=== PATIENT | female | born 1985 | race Hispanic/Latino ===

== ENCOUNTER 2024-04-24 16:25 | Emergency (ER) | payer OTHER ==
[~2024-04-24] VITALS: Ht 149.9 cm; Wt 76.2 kg
--- NOTE | 2024-04-24 17:31 | ERN ---
ED Note History of Present Illness Stated Complaint: VAGINAL PAIN, SWELLING, BURNING Chief Complaint: Vaginal plain Time Seen by MD: 16:58 Time Seen by Midlevel: 16:45 Dictation: Ms. Soriano is a 39-year-old female with history of obesity who presented to the emergency department this afternoon for evaluation vaginal pain. She reports 4- 5 days white/yeasty discharge with itching. She states now labia are very painful with burning sensation. She has pain with urination. She denies having any fever, chills, nausea, vomiting, diarrhea, hematuria, flank pain, abdominal pain headache, or dizziness. She states she has been monogamous heterosexual relationship. 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: None Home Meds Active Scripts Clotrimazole (Lotrimin 1% Cream) 1 % Crm, 1 APPL TP BID for 7 Days, #15 GM 0 Refills apply to affected area(s) Prov:ALHAJIJAISON Susi SANCHEZ 04/24/24 Ibuprofen (Ibuprofen) 600 Mg Tablet, 600 MG PO Q6H PRN for PAIN, #15 TAB 0 Refills Prov:JAISON MANE Susi SANCHEZ 04/24/24 Fluconazole (Diflucan) 100 Mg Tablet, 150 MG PO ONCE, #1 TAB 0 Refills Prov:JIASON MANE GRAVURE [employer]ESS SET UP OPERATOR 04/24/24 Cephalexin (Cephalexin) 500 Mg Tablet, 500 MG PO BID for 10 Days, #20 TAB 0 Refills Prov:JAISON MANE GRAVURE [employer] SET UP OPERATOR 04/24/24 Past Medical History Past Medical History: No Pertinent History PSYCH History: no pertinent psych hx Social History: Negative, Lives with family RN Note Reviewed/Agreed w/PFSH: Yes Review of System Dictation REVIEW OF SYSTEMS: CONSTITUTIONAL: Patient denies fevers, chills, sweats and weight changes. EYES: Patient denies any visual symptoms. EARS, NOSE, AND THROAT: No difficulties with hearing. No symptoms of rhinitis or sore throat. CARDIOVASCULAR: Patient denies chest pains, palpitations, orthopnea and paroxysmal nocturnal dyspnea. RESPIRATORY: No dyspnea on exertion, no wheezing or cough. GI: No nausea, vomiting, diarrhea, constipation, abdominal pain, hematochezia or melena. : No urinary hesitancy or dribbling. No nocturia or urinary frequency. No abnormal urethral discharge. Reports vaginal/labia pain with white discharge. Reports burning pain with urination. MUSCULOSKELETAL: No myalgias or arthralgias. NEUROLOGIC: No chronic headaches, no seizures. Patient denies numbness, tingling or weakness. PSYCHIATRIC: Patient denies problems with mood disturbance. No problems with anxiety. ENDOCRINE: No excessive urination or excessive thirst. DERMATOLOGIC: Patient denies any rashes or skin changes. Initial Vital Sign VS Vital Signs Date Time Temp Pulse Resp B/P (MAP) Pulse Ox O2 Delivery O2 Flow Rate FiO2 04/24/24 17:43 98.4 93 16 142/89 100 Room Air 0 04/24/24 17:53 21 Physical Exam Dictation Vital signs: Reviewed. Afebrile. Constitutional: No acute distress Uncomfortable Head/Face: Normocephalic, atraumatic. Eyes: Periorbital areas with no swelling, redness, or edema. Lids and lashes are normal. Conjunctival injection is absent. Sclera anicteric. Pupils equal, round, reactive to light. ENT: Pinnas intact and no signs of trauma or erythema. Ear canals clear and no discharge. TMs no erythema. No nasal discharge or bleeding noted. Oropharynx with no exudate, redness, swelling, masses, exudates, or evidence of obstruction. Uvula midline. Mucous membranes moist. Neck: Trachea midline, no masses palpated, and no cervical lymphadenopathy. No swelling. Supple, full range of motion. Chest/Axilla: No tenderness, no crepitus, no paradoxical movement, no retractions. Cardiovascular: Regular rate, regular rhythm, no murmur, no gallops. Symmetric pulses. No peripheral edema. Respiratory: Respirations even and unlabored. Lung sounds clear; no wheezes, rales or rhonchi. Gastrointestinal: Inspection is normal. No distention is appreciated. Bowel sounds are normal. No mass or organomegaly . There is no tenderness. No rebound. No rigidity. No voluntary or involuntary guarding. No Rider's sign. : There is erythema/excoriation of labia minora/majora extending to mons. There is scant yellow drainage without obvious odor. Tender upon palpation. Neurological: Normal speech, gross motor function intact, gross sensory function intact. No focal weakness/Paresthesia. Musculoskeletal/Extremities: All extremities have full range of motion, no pain or tenderness on palpation. Symmetric pulses. Integumentary: Intact. Skin is normal color, warm and dry. Cap refill less than 3 seconds. Results (Laboratory/Radiology) Laboratory/Radiology Laboratory Tests Test 04/24/24 17:30 Urine Color LIGHT-YELLOW (YELLOW) Urine Appearance CLOUDY (CLEAR) H Urine pH 6.0 (5.0-8.0) Urine Specific [place] 1.042 (1.001-1.031) Urine Protein NEGATIVE mg/dL (NEGATIVE) Urine Glucose (UA) >=1000 mg/dL (NEGATIVE) H Urine Ketones NEGATIVE mg/dL (NEGATIVE) Urine Occult Blood NEGATIVE (NEGATIVE) Urine Nitrate NEGATIVE (NEGATIVE) Urine Bilirubin NEGATIVE mg/dL (NEGATIVE) Urine Urobilinogen 0.2 mg/dL (0.2-1.0) Urine Leukocyte Esterase 75 Lisa/uL (NEGATIVE) H Urine RBC 2-5 /HPF (0-1) H Urine WBC 11-25 /HPF (0-1) H Urine Squamous Epithelial Cells MOD /HPF (0-2) Urine Bacteria RARE /HPF (None Seen) Urine Other Casts 1 /LPF (None Seen) Urine Yeast RARE /HPF (None Seen) Urine HCG, Qualitative NEGATIVE (NEGATIVE) Labs Reviewed?: Yes ED Course ED Course Orders Procedure Category Date Status Time Fluconazole 100 Mg PHA 04/24/24 In Process Tab (Diflucan 100 Mg 17:30 Ketorolac PHA 04/24/24 In Process Tromethamine 30mg/Ml 17:30 Urinalysis Profile LAB 04/24/24 Complete 17:30 ,Urine Test LAB 04/24/24 Complete 17:30 Urinalysis Profile LAB 04/24/24 Logged 17:41 Culture Urine HALI 04/24/24 Logged 18:07 Cephalexin 500 Mg PHA 04/24/24 In Process Capsule (Keflex 500 Mg 18:30 Current Medications Medications (Trade) Dose Ordered Sig/Dada Route PRN Reason Start Time Stop Time Status Last Admin Dose Admin Cephalexin (Keflex 500 MG CAPS) 500 mg ONCE PO 04/24/24 18:30 04/24/24 21:30 04/24/24 18:22 Fluconazole (DiFLUCan 100 mg TAB) 150 mg ONCE PO 04/24/24 17:30 04/24/24 22:30 04/24/24 18:07 Ketorolac Tromethamine (toRADol) 30 mg ONCE IM 04/24/24 17:30 04/24/24 22:30 04/24/24 18:06 Vital Signs Date Time Temp Pulse Resp B/P (MAP) Pulse Ox O2 Delivery O2 Flow Rate FiO2 04/24/24 17:53 98.4 93 18 142/89 96 Room Air* 0 21 04/24/24 17:43 98.4 93 16 142/89 100 Room Air 0 Uneventful ED course. Vital signs remained stable; afebrile with room air SpO2 99%. Patient received doses Diflucan and Toradol. UA cloudy; positive large leukocyte esterase and you WBCs 11-25. Culture pending. Medical Decision Making MDM MDM: Differential diagnosis:yeast infection, vulvovaginitis, UTI Rationale: Tests considered and ordered secondary to shared decision making include: Previous outside records reviewed: Old ER visits. Risk of complication and/or morbidity or mortality of patient management: None Medications-Per medication reconciliation Need for hospitalization: Patient does not meet criteria for hospitalization. Need for emergency major/minor surgery: No There are no social concerns with this patient. Prescription drug management: Lotrisone, Diflucan Prescriptions will include symptomatic care Patient's prior external medical records from other ER visits were reviewed by me as indicated. Prior testing and results from previous visits were reviewed. Prior tests were taken into account with medical decision making and resource utilization, independent historian/historians were used to obtain complete medical history. I independently interpreted the test that were performed, results were reviewed by me and considered findings on radiology if ordered. Medical management and examination interpretation discussions were had by me with other qualified healthcare professionals as indicated for the patient's care. DX & DISP Disposition: Discharge Departure Impression: Primary Impression: Vulvovaginal candidiasis Additional Impressions: Vulvodynia, UTI (urinary tract infection) Condition: Stable Scripts Clotrimazole (Lotrimin 1% Cream) 1 % Crm 1 APPL TP BID for 7 Days, #15 GM 0 Refills apply to affected area(s) Prov: JAISON MANE GRAVURE PR[employer] SET UP OPERATOR 04/24/24 Ibuprofen (Ibuprofen) 600 Mg Tablet 600 MG PO Q6H PRN for PAIN, #15 TAB 0 Refills Prov: JAISON MANE NP 04/24/24 Fluconazole (Diflucan) 100 Mg Tablet 150 MG PO ONCE, #1 TAB 0 Refills Prov: JAISON MANE NP 04/24/24 Cephalexin (Cephalexin) 500 Mg Tablet 500 MG PO BID for 10 Days, #20 TAB 0 Refills Prov: JAISON MANE NP 04/24/24 Additional Instructions: Drink plenty of fluids/water. Wear cotton underwear. Wash with clear water/pat dry after urination. Avoid bubble baths/hot tubs. Avoid sexual intercourse until treatment is completed. May take ibuprofen every 8 hours as needed for discomfort (take with food). Start cephalexin twice daily for 10 days for urinary tract infection. Repeat Diflucan tablet in three days. Follow up with your primary care physician in the next 5-7 days. Return to the emergency department for worsening of symptoms or concerns. Referrals: SELF,REFERRAL (PCP) Time of Disposition: 18:17 JAISON MANE NP Apr 24, 2024 17:31 ELIOT FERRERA DO Apr 24, 2024 18:47
[2024-04-24 17:53] VITALS: BP 142/89; PULSE 93; RESP 18; TEMP 98.4; O2SAT 96
[2024-04-24 18:04] LABS: HCG,QUALITATIVE URINE NEGATIVE (NEGATIVE)
[2024-04-24] MEDS: ketOROlac 30MG VIAL (30MG/ML) IM SCH (18:06)
[2024-04-24 18:07] LABS: ADD UA MICROSCOPIC YES; APPEARANCE,URINE CLOUDY (CLEAR); BILIRUBIN,URINE NEGATIVE (NEGATIVE); COLOR,URINE LIGHT-YELLOW (YELLOW); GLUCOSE, URINE (UA) >=1000 mg/dL (NEGATIVE); KETONES,URINE NEGATIVE (NEGATIVE); LEUKOCYTE ESTERASE ,URINE 75 Leu/uL (NEGATIVE); NITRATE,URINE NEGATIVE (NEGATIVE); OCCULT BLOOD,URINE NEGATIVE (NEGATIVE); PROTEIN,URINE NEGATIVE (NEGATIVE); UROBILINOGEN,URINE 0.2 mg/dL (0.2-1.0)
[2024-04-24] MEDS: fluCONazole 100 MG TAB PO SCH (18:07)
[2024-04-24 18:08] LABS: BACTERIA,URINE RARE /HPF (None Seen); OTHER CASTS, URINE 1 /LPF (None Seen); SQUAMOUS EPITHELIAL CELL,UR MOD /HPF (0-2); YEAST,URINE BUDDING RARE /HPF (None Seen)
[2024-04-24] MEDS ORDERED: CLOT15C TP (18:16)
[2024-04-24] MEDS ORDERED: IBUP-2070 PO (18:16)
[2024-04-24] MEDS ORDERED: FLUC100T PO (18:16)
[2024-04-24] MEDS ORDERED: CEPH500T PO (18:16)
[2024-04-24] MEDS: cePHALexin 500 MG CAPSULE PO SCH (18:22)
== END 2024-04-24 18:49 | disposition home or self-care (01) ==
LOC: EDH 16:25
DX: B37.31 Acute candidiasis of vulva and vagina (principal); N94.819 Vulvodynia, unspecified; N39.0 Urinary tract infection, site not specified; Z79.899 Other long term (current) drug therapy; Z88.1 Allergy status to other antibiotic agents
CPT/HCPCS: 99283; 87086 ×2; 87186; 81001; 81025; 96372; J1885